=== PATIENT | male | born 1940 | race African-American/Black ===

== ENCOUNTER → 2023-05-29 | Outpatient (CLI) | payer MEDICARE, BC | END | disposition home or self-care (01) | LOC: MRI 10:38 | PROVIDERS: ATTEND Internal Medicine Critical Care Medicine | DX: G45.9 Transient cerebral ischemic attack, unspecified (principal); G31.9 Degenerative disease of nervous system, unspecified; I67.82 Cerebral ischemia | CPT/HCPCS: 70551 ==

== ENCOUNTER 2024-07-27 09:51 | Emergency (ER) | payer MEDICARE, BC ==
[~2024-07-27] VITALS: Ht 185.4 cm; Wt 74.8 kg
[2024-07-27 10:22] VITALS: O2SAT 98
[2024-07-27 12:01] LABS: EOSINOPHILS % 1.3 % (0.0-5.0); HEMATOCRIT. 43.2 % (42.0-52.0); HEMOGLOBIN. 13.9 g/dL (14.0-18.0); LYMPHOCYTES % 24.7 % (20.0-50.0); MEAN CORPUSCULAR HEMOGLOBIN 29.5 pg (28.0-32.0); MEAN CORPUSCULAR HGB CONC 32.1 g/dL (31.0-37.0); MEAN PLATELET VOLUME 10.2 fl (7.4-10.4); MONOCYTES % 7.3 % (2.0-8.0); NEUTROPHILS % 65.7 % (40.0-76.0); PLATELET 162 x1000/uL (130-400); RED CELL DISTRIBUTION WIDTH 14.8 % (11.6-14.6); WHITE BLOOD COUNT 6.1 x1000/uL (4.5-11.0)
[2024-07-27 12:09] LABS: CARBON DIOXIDE 30 mEq/L (21-32); CHLORIDE 103 mEq/L (98-107); POTASSIUM 5.2 mEq/L (3.5-5.1); SODIUM 139 mEq/L (136-145)
[2024-07-27 12:10] LABS: CALCIUM 9.9 mg/dL (8.7-10.4)
[2024-07-27 12:14] LABS: CREATININE 1.3 mg/dL (0.6-1.3); GLUCOSE 275 mg/dL (70-105); TROPONIN I HIGH SENSITIVITY 22 ng/L (3.0-53); UREA NITROGEN BLOOD 24 mg/dL (9-23)
[2024-07-27 12:16] LABS: ALANINE AMINOTRANSFERASE 20 IU/L (10-49); ALBUMIN 4.3 g/dL (3.2-4.8); ASPARTATE AMINOTRANSFERASE 38 IU/L (<34)
[2024-07-27 12:17] LABS: BILIRUBIN DIRECT 0.2 mg/dL (<=3.0)
[2024-07-27 12:47] LABS: ETHANOL BLOOD < 10 mg/dL (<10)
[2024-07-27 12:50] LABS: CLARITY URINE CLEAR (CLEAR); COLOR URINE YELLOW (YELLOW); GLUCOSE URINE 3+ (NEGATIVE); KETONES URINE NEGATIVE (NEGATIVE); LEUKOCYTE ESTERASE URINE NEGATIVE (NEGATIVE); NITRITE URINE NEGATIVE (NEGATIVE); OCCULT BLOOD URINE NEGATIVE (NEGATIVE); PH URINE 5.5 (4.5-8.0); PROTEIN URINE NEGATIVE (NEGATIVE); SPECIFIC GRAVITY URINE 1.027 (1.005-1.030); UROBILINOGEN URINE 0.2 E.U./dL (0.2-1.0)
[2024-07-27 13:08] LABS: *AMPHETAMINES SCREEN URINE NEGATIVE (NEGATIVE); *BARBITURATES SCREEN URINE NEGATIVE (NEGATIVE); *BENZODIAZEPINES SCREEN URINE NEGATIVE (NEGATIVE); *COCAINE SCREEN URINE NEGATIVE (NEGATIVE); CANNABINOID URINE SCREEN NEGATIVE (NEGATIVE); ECSTASY MDMA SCREEN URINE NEGATIVE (NEGATIVE); METHADONE URINE SCREEN NEGATIVE (NEGATIVE); OPIATES URINE SCREEN NEGATIVE (NEGATIVE); PHENCYCLIDINE URINE SCREEN NEGATIVE (NEGATIVE)
[2024-07-27 13:39] LABS: MUCUS URINE TRACE /lpf (NONE/TRACE)
[2024-07-27 13:40] LABS: BACTERIA URINE TRACE; SQUAMOUS EPITHELIAL CELL URINE NONE SEEN /lpf (RARE/1+); WBC URINE 0-2 /hpf (0-2)
[2024-07-27 13:42] LABS: RBC URINE NONE SEEN /hpf (0-2)
[2024-07-27 14:10] LABS: TROPONIN I HIGH SENSITIVITY 26 ng/L (3.0-53)
[2024-07-27 14:37] VITALS: BP 151/56; PULSE 62; RESP 17; TEMP 36.72516; O2SAT 99
[2024-07-27 15:10] LABS: INR 0.9; PROTHROMBIN TIME 10.4 sec (9.6-11.0)
== END 2024-07-27 14:37 | disposition home or self-care (01) ==
LOC: ER 09:51
DX: R26.81 Unsteadiness on feet (principal); E11.9 Type 2 diabetes mellitus without complications; I49.9 Cardiac arrhythmia, unspecified; Z88.8 Allergy status to other drugs, medicaments and biological substances; Z88.1 Allergy status to other antibiotic agents
CPT/HCPCS: 36415; 71045; 80048; 80076; 80305; 80320; 81003; 84484; 85025; 93005; 99285; G0480

== ENCOUNTER 2024-10-11 23:05 | Inpatient (IN) | payer MEDICARE ==
[~2024-10-11] VITALS: Ht 186.7 cm; Wt 73.5 kg
[2024-10-11 23:05] VITALS: BP 146/71; PULSE 69; RESP 18; TEMP 36.8
[~2024-10-11 23:05] MED LIST: DAPA10TA; INSU100I28 SUBCUT; INSU4CAR PO; LATA2.5D14 EACHEYE; MECL-299 PO; MEMA5TAB16 PO
[2024-10-12] VITALS: BP 146/71; PULSE 69; RESP 18; TEMP 36.7; O2SAT 98
[2024-10-12] MEDS ORDERED: ONDANSETRON HCL 4MG/2ML INJ IV PRN (01:00)
[2024-10-12] MEDS ORDERED: DOCUSATE SODIUM 100MG CAPSULE PO PRN (01:00)
[2024-10-12] MEDS ORDERED: MAGNESIUM/ALUMINUM HYDROXIDE/SIMETHICONE 30ML UDC PO PRN (01:00)
[2024-10-12] MEDS: LACTATED RINGERS 1,000 ML IV SCH (01:00)
[2024-10-12] MEDS ORDERED: LORAZEPAM 2MG/ML INJ IV PRN (01:00)
[2024-10-12] MEDS ORDERED: IPRATROPIUM/ALBUTEROL 0.5-3(2.5)MG/3ML NEB HHN PRN (01:00)
[2024-10-12] MEDS ORDERED: ACETAMINOPHEN 325MG TABLET PO PRN (01:00)
[2024-10-12] MEDS ORDERED: GUAIFENESIN 200MG/10ML SUGAR FREE UDC PO PRN (01:00)
[2024-10-12] MEDS ORDERED: CLONIDINE 0.1MG TABLET PO PRN (01:00)
[2024-10-12] MEDS ORDERED: DEXTROSE 50% WATER 50ML SYRINGE IV PRN (01:30)
[2024-10-12 06:16] LABS: BASOPHILS % 0.7 % (0.0-2.0); HEMATOCRIT. 42.3 % (42.0-52.0); LYMPHOCYTES % 24.4 % (20.0-50.0); MEAN CORPUSCULAR HEMOGLOBIN 30.2 pg (28.0-32.0); MEAN CORPUSCULAR VOLUME 91.4 fL (80.0-94.0); MEAN PLATELET VOLUME 9.1 fl (7.4-10.4); MONOCYTES % 9.3 % (2.0-8.0); NEUTROPHILS % 64.6 % (40.0-76.0); PLATELET 176 x1000/uL (130-400); RED BLOOD CELL COUNT 4.63 mill/uL (4.7-6.1); RED CELL DISTRIBUTION WIDTH 13.6 % (11.6-14.6)
[2024-10-12] MEDS: BLOOD SUGAR DIAGNOSTIC STRIP TEST SCH (06:18)
[2024-10-12 06:25] LABS: CARBON DIOXIDE 33 mEq/L (21-32); CHLORIDE 103 mEq/L (98-107); POTASSIUM 4.1 mEq/L (3.5-5.1); SODIUM 141 mEq/L (136-145)
[2024-10-12 06:26] LABS: CALCIUM 9.9 mg/dL (8.7-10.4)
[2024-10-12 06:30] LABS: CREATININE 1.1 mg/dL (0.6-1.3)
[2024-10-12 06:31] LABS: GLUCOSE 102 mg/dL (70-105); UREA NITROGEN BLOOD 24 mg/dL (9-23)
[2024-10-12 06:32] LABS: ALBUMIN 3.9 g/dL (3.2-4.8)
[2024-10-12 06:33] LABS: ALANINE AMINOTRANSFERASE 24 IU/L (10-49); ASPARTATE AMINOTRANSFERASE 51 IU/L (<34); BILIRUBIN TOTAL 1.1 mg/dL (0.1-1.0); PROTEIN TOTAL 6.3 g/dL (6.0-8.3)
[2024-10-12 08:00] VITALS: BP 147/79; PULSE 97; RESP 18; TEMP 36.4; O2SAT 97
[2024-10-12] MEDS: EMPAGLIFLOZIN 25MG TABLET PO SCH (09:00)
[2024-10-12] MEDS: INSULIN LISPRO 100 UNITS/ML SUBCUT SCH (09:00)
[2024-10-12] MEDS: MEMANTINE HCL 5MG TABLET PO SCH (09:19)
[2024-10-12] MEDS: GUAIFENESIN 600MG ER TABLET PO SCH (09:19)
[2024-10-12] MEDS: AMLODIPINE 2.5MG TABLET PO SCH (09:19)
[2024-10-12] MEDS ORDERED: BISACODYL 5MG TABLET PO PRN (15:00)
[2024-10-12] MEDS: DOCUSATE SODIUM 100MG CAPSULE PO SCH (15:43)
[2024-10-12 20:00] VITALS: BP 146/58; PULSE 77; RESP 19; TEMP 36.3; O2SAT 99
[2024-10-12] MEDS: LATANOPROST 0.005% OPHTH DROPS 2.5ML EACHEYE SCH (21:00)
[2024-10-12] MEDS: ATORVASTATIN CALCIUM 40MG TABLET PO SCH (22:05)
[2024-10-12] MEDS: INSULIN GLARGINE 100 UNITS/ML SUBCUT SCH (22:17)
[2024-10-13 08:00] VITALS: BP 178/86; PULSE 86; RESP 18; TEMP 35.8; O2SAT 98
[2024-10-13] MEDS: LORAZEPAM 2MG/ML INJ IM NR (17:44)
[2024-10-13 20:09] VITALS: BP 154/64; PULSE 116; RESP 17; TEMP 36.7; O2SAT 97
[2024-10-14 08:00] VITALS: BP 97/44; PULSE 71; RESP 19; TEMP 36.1; O2SAT 94
[2024-10-14 09:31] VITALS: PULSE 65; PULSE 84; RESP 18; TEMP 95.4
[2024-10-14 20:00] VITALS: BP 123/68; PULSE 74; RESP 19; TEMP 36.3; O2SAT 99
[2024-10-15 08:00] VITALS: BP 146/82; PULSE 73; RESP 20; TEMP 36; O2SAT 97
[2024-10-15 20:00] VITALS: BP 152/79; PULSE 91; RESP 18; TEMP 36.7; O2SAT 96
[2024-10-16 08:00] VITALS: BP 154/81; PULSE 94; RESP 20; TEMP 36; O2SAT 97
[2024-10-16 20:00] VITALS: BP 116/49; PULSE 72; RESP 18; TEMP 36.7; O2SAT 99
[2024-10-17 08:00] VITALS: BP 129/73; PULSE 65; RESP 20; TEMP 36.4; O2SAT 100
[2024-10-17 20:00] VITALS: PULSE 69; RESP 19; TEMP 36.5; O2SAT 98
[2024-10-17] MEDS: ACETAMINOPHEN 325MG TABLET PO PRN (21:00)
[2024-10-18 08:00] VITALS: BP 140/60; PULSE 64; RESP 20; TEMP 36.1; O2SAT 98
[2024-10-18 20:00] VITALS: BP 138/64; PULSE 72; RESP 18; TEMP 36.6; O2SAT 97
[2024-10-19 08:00] VITALS: BP 140/61; PULSE 70; RESP 19; TEMP 36.2; O2SAT 98
[2024-10-19 20:00] VITALS: BP 127/71; PULSE 70; RESP 19; TEMP 36.2; O2SAT 98
[2024-10-20 08:00] VITALS: BP 146/75; PULSE 73; RESP 20; TEMP 36; O2SAT 98
[2024-10-20 09:48] VITALS: BP 146/75; PULSE 73; TEMP 96.8; O2SAT 98
[2024-10-20] MEDS ORDERED: GUAI-741 MT (13:07)
[2024-10-20] MEDS ORDERED: ATOR40TA70 MT (13:07)
[2024-10-20] MEDS ORDERED: AMLO2.5T45 PO (13:09)
[2024-10-20] MEDS ORDERED: GUAI600T26 PO (13:12)
== END 2024-10-20 13:22 | disposition home health service (06) | DRG 64 ==
LOC: 4WST 10-12 13:52
PROVIDERS: ADMIT Psychiatry & Neurology Neurology; ATTEND Hospitalist
DX: I63.81 Other cerebral infarction due to occlusion or stenosis of small artery (principal); I61.4 Nontraumatic intracerebral hemorrhage in cerebellum; G93.40 Encephalopathy, unspecified; M62.82 Rhabdomyolysis; R26.9 Unspecified abnormalities of gait and mobility; I16.0 Hypertensive urgency; M54.32 Sciatica, left side; E11.9 Type 2 diabetes mellitus without complications; E78.5 Hyperlipidemia, unspecified; I10 Essential (primary) hypertension; F01.50 Vascular dementia, unspecified severity, without behavioral disturbance, psychotic disturbance, mood disturbance, and anxiety; M79.605 Pain in left leg; J45.909 Unspecified asthma, uncomplicated; G89.29 Other chronic pain; Z88.1 Allergy status to other antibiotic agents; Z88.8 Allergy status to other drugs, medicaments and biological substances
CPT/HCPCS: 36415; 72170; 80053; 82962; 83036; 85025; 92523; 92610; 93306; 93880; 97110; 97112; 97116; 97150; 97162; 97165; 97530; 97535; A4606; J1815; J2060; J7120